=== PATIENT | female | born 1960 | race Caucasian/White ===

== ENCOUNTER 2022-08-06 03:02 | Emergency (ER) | payer OTHER ==
[~2022-08-06] VITALS: Ht 167.6 cm; Wt 68.9 kg
[2022-08-06 03:10] VITALS: BP 140/75
--- NOTE | 2022-08-06 03:10 | NUR ---
[place] FROM [place] C/O POOR PO INTAKE, AND RESFUSING MEDS. PT A/OX1; NOT SPEAKING AT THIS TIME. TOLERATING R/A WELL WITH NO RESP DISTRESS. SAFETY MEASURES IN PLACE. 1:1 SITTER AT PT'S BEDSIDE.
--- NOTE | 2022-08-06 03:16 | NUR ---
CHAIR SPRINGER AT PT'S BEDSIDE
[2022-08-06 03:32] LABS: BASOPHILS # (AUTO) 0.1 K/uL (0.0-0.2); BASOPHILS % (AUTO) 1.8 % (0.0-2.0); EOSINOPHILS % (AUTO) 4.1 % (0.0-6.0); HEMATOCRIT 36 % (33-45); HEMOGLOBIN 12.1 g/dL (11.5-14.8); LYMPHOCYTES # (AUTO) 1.5 K/uL (0.8-4.8); LYMPHOCYTES % (AUTO) 24.1 % (20.0-44.0); MEAN CORPUSCULAR HGB CONC 33 g/dl (31.0-36.0); MEAN CORPUSCULAR VOLUME 90 fL (82-100); MONOCYTES # (AUTO) 0.5 K/uL (0.1-1.30); MONOCYTES % (AUTO) 8.8 % (2.0-12.0); NEUTROPHILS # (AUTO) 3.7 K/uL (1.8-8.9); NEUTROPHILS % (AUTO) 61.2 % (43.0-81.0); PLATELET COUNT (AUTO) 175 K/uL (150-450); WHITE BLOOD COUNT (AUTO) 6.1 K/uL (4.3-11.0)
--- NOTE | 2022-08-06 03:33 | NUR ---
DATABASE ADMINISTRATION ASSOCIATE AT PT'S BEDSIDE
--- NOTE | 2022-08-06 03:38 | NUR ---
URINE, COVID ANTIGEN, AND MRSA SWAB COLLECTED AND SENT TO LAB
[2022-08-06 03:50] LABS: CALCIUM, SERUM 9.3 mg/dL (8.5-10.1); CARBON DIOXIDE 24 mmol/L (21-32); CHLORIDE 95 mmol/L (98-107); GLUCOSE 85 mg/dL (74-106); POTASSIUM 3.2 mmol/L (3.5-5.1); SODIUM SERUM 135 mmol/L (136-145); UREA NITROGEN, BLOOD 21 mg/dL (7-18)
[2022-08-06 04:02] LABS: ALANINE AMINOTRANSFERASE 17 U/L (12-78); ALBUMIN 3.6 g/dL (3.4-5.0); ALCOHOL, BLOOD < 3 mg/dL (0-0); ALKALINE PHOSPHATASE 90 U/L (46-116); ASPARTATE AMINOTRANSFERASE 13 U/L (15-37); BILIRUBIN,DIRECT 0.2 mg/dL (0.0-0.2); BILIRUBIN,TOTAL 0.6 mg/dL (0.2-1.0)
[2022-08-06 04:03] LABS: ACETAMINOPHEN 0 ug/ml (10-30)
[2022-08-06 04:21] LABS: BILIRUBIN,URINE NEGATIVE (NEGATIVE); COLOR,URINE YELLOW (YELLOW); LEUKOCYTE ESTERASE ,URINE NEGATIVE (NEGATIVE); NITRITE, URINE POSITIVE (NEGATIVE); PROTEIN,URINE NEGATIVE (NEGATIVE); UGLUCOSE NEGATIVE (NEGATIVE)
--- NOTE | 2022-08-06 04:46 | NUR ---
FOLLOWED UP WITH [facility]
--- NOTE | 2022-08-06 05:24 | NUR ---
[facility] TRANSPORTATION ETA 30 MINUTES PER [facility]
--- NOTE | 2022-08-06 05:26 | NUR ---
REPORT GIVEN TO CLARENCE MOORE FROM [facility] FOR [facility]
--- NOTE | 2022-08-06 06:11 | NUR ---
[facility] AT PT'S BEDSIDE TO DC PT TO [facility].
== END 2022-08-06 06:11 ==
LOC: ER 03:15
DX: R63.0 Anorexia (principal); F03.90 Unspecified dementia, unspecified severity, without behavioral disturbance, psychotic disturbance, mood disturbance, and anxiety; Z20.822 Contact with and (suspected) exposure to COVID-19
CPT/HCPCS: 99284; 71045; 85025; 80048; 80076; 81003; 36415; 87426; 80143; 80320; 80307; C9803; 87081-TC; G0480